=== PATIENT | female | born 1985 | race Caucasian/White ===

== ENCOUNTER 2016-11-26 17:05 | Outpatient (CLI) | payer OTHER ==
[~2016-11-26] VITALS: Ht 167.6 cm; Wt 108.0 kg
[2016-11-26 17:51] VITALS: Ht 167.6 cm; Wt 108.0 kg
== END 2016-11-26 21:37 | disposition home or self-care (01) ==
LOC: C.LD 17:05 → C.OPB 17:05
PROVIDERS: ATTEND Obstetrics & Gynecology
DX: O26.893 Other specified pregnancy related conditions, third trimester (principal); T14.90 Injury, unspecified; Z3A.36 36 weeks gestation of pregnancy; X58.XXXA Exposure to other specified factors, initial encounter

== ENCOUNTER → 2016-11-27 | Outpatient (CLI) | payer OTHER ==
[~2016-11-27] MED LIST: LANS15CA27 PO; MAGN400T6 PO; OXYC1TAB3 PO; PANT40TA PO; PREN1CAP3 PO; PRENTAB26 PO
== END | disposition home or self-care (01) ==
LOC: C.LABSPEC 13:55
PROVIDERS: ATTEND Obstetrics & Gynecology
DX: O09.10 Supervision of pregnancy with history of ectopic pregnancy, unspecified trimester (principal)

== ENCOUNTER 2016-12-06 13:36 | Outpatient (CLI) | payer OTHER ==
[~2016-12-06] VITALS: Ht 167.6 cm; Wt 108.5 kg
[2016-12-06] MEDS ORDERED: PANT40TA PO (14:08)
[2016-12-06] MEDS ORDERED: MAGN400T6 PO (14:08)
[2016-12-06] MEDS ORDERED: PRENTAB26 PO (14:08)
[2016-12-06 14:09] VITALS: Ht 167.6 cm; Wt 108.5 kg
[2016-12-06] MEDS ORDERED: NURSING VERBAL MED ORDER ONE (14:45)
[2016-12-06] MEDS ORDERED: ACETAMINOPHEN 325 MG TAB ONE (14:50)
[2016-12-06 15:06] LABS: MEAN CELL VOLUME 81.5 fL (80-100); MEAN CORPUSCULAR HEMOGLOBIN 27.3 pg (25-34); MEAN PLATELET VOLUME 11.8 fL (7.4-10.4); PLATELET COUNT 243 K/uL (130-400); RED BLOOD COUNT 4.17 M/uL (4.2-5.4); WHITE BLOOD COUNT 9.41 K/uL (4.8-10.8)
[2016-12-06 15:15] LABS: MEAN CORPUSCULAR HGB CONC 33.5 g/dl (32-36)
[2016-12-06 15:25] LABS: BUN/CREATININE RATIO 14.1 (10-20); CALCIUM 8.9 mg/dl (8.5-10.1); CREATININE 0.54 mg/dl (0.60-1.20); POTASSIUM 3.7 mmol/L (3.5-5.1)
[2016-12-06 15:29] LABS: ALB/GLOB RATIO 0.7 (0.9-2)
== END 2016-12-06 16:20 | disposition home or self-care (01) ==
LOC: C.OPB 13:36 → C.LD 13:37 → C.OPB 16:20
PROVIDERS: ATTEND Obstetrics & Gynecology
DX: O62.9 Abnormality of forces of labor, unspecified (principal); Z3A.37 37 weeks gestation of pregnancy

== ENCOUNTER 2016-12-16 10:37 | Inpatient (IN) | payer OTHER ==
[~2016-12-16] VITALS: Ht 167.6 cm; Wt 113.6 kg
[~2016-12-16 10:37] MED LIST changes: -LANS15CA27 PO; -OXYC1TAB3 PO; -PREN1CAP3 PO
[2016-12-16 12:18] VITALS: BMI 40.4
[2016-12-16] MEDS ORDERED: LACTATED RINGER'S 1000ML 1,000 ML IV SCH (12:43)
[2016-12-16] MEDS ORDERED: LACTATED RINGER'S 1000ML 1,000 ML IV PRN (12:43)
[2016-12-16 13:11] LABS: HEMATOCRIT 34.1 % (37-47); MEAN CELL VOLUME 81.6 fL (80-100); MEAN CORPUSCULAR HEMOGLOBIN 27.8 pg (25-34); MEAN PLATELET VOLUME 11.6 fL (7.4-10.4); PLATELET COUNT 252 K/uL (130-400); RED BLOOD COUNT 4.18 M/uL (4.2-5.4); WHITE BLOOD COUNT 9.63 K/uL (4.8-10.8)
[2016-12-16 13:35] LABS: BUN/CREATININE RATIO 13.7 (10-20); CALCIUM 8.9 mg/dl (8.5-10.1); CREATININE 0.52 mg/dl (0.60-1.20); POTASSIUM 3.9 mmol/L (3.5-5.1)
[2016-12-16 13:50] VITALS: Ht 167.6 cm; Wt 113.6 kg
[2016-12-16] MEDS ORDERED: LACTATED RINGER'S 1000ML 500 ML IV PRN ×2 (14:02→16:46)
[2016-12-16] MEDS ORDERED: OXYTOCIN 30 UNITS/500ML NSS IV PRN ×2 (14:15→19:00)
--- NOTE | 2016-12-16 14:56 | Medical Student: [facility] ---
Med Student History & Physical Date of Service Dec 16, 2016. Chief Complaint R/O Rupture Of Membranes History of Present Illness Source: patient, family pt is a 31 yo F with , ORTIZ of 01/03/2017 by first trimester US, 38 and 6/ 7 weeks who presents to r/o ROM. has been followed by Sofia Kraft after transferring from [place] on 11/20/2016. course has been complicated by elevated BP, IOL was planned at 39 weeks GA. She also reports intermittent headaches and vision changes (floaters and tunnel vision). This morning after showering she noticed some warm clear fluid running down her legs. She denies any bleeding. Reports good movements. Pt plans on using epidural for pain control. Blood type is A negative, rubella immune, GBS negative, HBV negative, VDRL/RPR negative, C/G negative, 1 hr glucose 96. 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 Menarche at age 15, LMP: 02/28/2016 , no hx of abnormal pap smears Past Medical History hx of varicella Past Surgical History right shoulder surgery, wisdom teeth Family History Coarctation of the aorta (son) Colon cancer (paternal grandfather) Malignant neoplasm of breast (maternal grandmother) Social History Smoking Status: Never Smoker Alcohol Use: none Drug Use: none Marital Status: Occupational Status: employed Allergies Coded Allergies: No Known Allergies (Verified , 12/06/16) Home Medications Magnesium Oxide (Mag-Ox), 400 MG PO Multivit/Min/Iron/Fol Ac/Pren ( Vitamin), 1 TAB PO DAILY Pantoprazole (Protonix), 40 MG PO DAILY Review of Systems Constitutional: No fever Respiratory: No cough, No shortness of breath Cardiovascular: No chest pain Abdomen: No pain, No nausea, No vomiting Genitourinary - Female: No dysuria Physical Exam General Appearance: WD/WN, no apparent distress Respiratory/Chest: lungs clear, normal breath sounds, no respiratory distress Cardiovascular: regular rate, rhythm Abdomen / GI: non tender, soft Extremities: + pedal edema (some pedal edema (usually much worse in the evening )) Monitoring External Monitor: baseline HR 125, moderate variability, category 1 tracing. Laboratory Results 7/26/17 12:55 12/16/16 12:55 Test 12/16/16 12:55 Red Blood Count 4.18 M/uL (4.2-5.4) Mean Corpuscular Volume 81.6 fL (80-100) Mean Corpuscular Hemoglobin 27.8 pg (25-34) Mean Corpuscular Hemoglobin Concent 34.0 g/dl (32-36) RDW Standard Deviation 42.4 fL (36.4-46.3) RDW Coefficient of Variation 14.3 % (11.5-14.5) Mean Platelet Volume 11.6 fL (7.4-10.4) Anion Gap 8.0 mmol/L (3-11) Est Creatinine Clear Calc Drug Dose 202.3 ml/min Estimated GFR () 148.6 Estimated GFR (Non- 128.2 BUN/Creatinine Ratio 13.7 (10-20) Calcium Level 8.9 mg/dl (8.5-10.1) Aspartate Amino Transf (AST/SGOT) 13 U/L (15-37) Assessment and Plan pt is a 31 yo F at 38 and 6/7 weeks GA who presents with possible ROM. Blood type A+, GBS negative, rubella immune. tracing category 1. - Admit to L&D and monitor mother. - Monitor fetus with EFM and contractions with tocodynamometer - NPO except clear liquid and ice chips - Perform AROM to induce/accelerate labor - Consider pitocin if needed - Anticipate
[2016-12-16] MEDS ORDERED: EpHEDrine SULFATE INJ 50 MG/ML AMP ONE (15:44)
[2016-12-16] MEDS ORDERED: BUPIVACAINE 0.25% 30 ML VIAL ONE (15:44)
[2016-12-16] MEDS ORDERED: FENTANYL CITRATE INJ 50 MCG/1 ML 2 ML VIAL ONE (15:45)
[2016-12-16] MEDS ORDERED: FENTANYL 2MCG/ML ROPIV 1.25MG/ML 100ML BAG EPI ONE (15:45)
[2016-12-16] MEDS ORDERED: NALOXONE HCL INJ 1 MG in SODIUM CHLORIDE 0.9% 1000ML 1,000 ML IV PRN (16:46)
[2016-12-16] MEDS ORDERED: FENTANYL 2MCG/ML ROPIV 1.25MG/ML 100ML BAG EPI PRN (17:00)
[2016-12-16] MEDS ORDERED: DiphenhydrAMINE HCL 50 MG/ML VIAL IV PRN (17:00)
[2016-12-16] MEDS ORDERED: EpHEDrine SULFATE INJ 50 MG/ML AMP IV PRN (17:00)
[2016-12-16] MEDS ORDERED: NALOXONE HCL INJ 0.4 MG/1 ML VIAL/CARP IV PRN (17:00)
[2016-12-16] MEDS ORDERED: ONDANSETRON INJ 2 MG/ML 2 ML VIAL IV PRN (17:00)
[2016-12-16] MEDS ORDERED: NALBUPHINE HCL INJ 10 MG/ML AMP IV PRN (17:00)
[2016-12-16] MEDS ORDERED: ACETAMINOPHEN/CODEINE 300/30MG TAB PO PRN ×2 (19:00)
[2016-12-16] MEDS ORDERED: LANOLIN OINT EXT PRN ×2 (19:00)
[2016-12-16] MEDS ORDERED: ACETAMINOPHEN 325 MG TAB PO PRN (19:00)
[2016-12-16] MEDS ORDERED: SUPERCREAM 0.870 % 15GM JAR EXT PRN (19:00)
[2016-12-16] MEDS ORDERED: BENZOCAINE 20% AER SPR 82.5 GM CAN EXT PRN (19:00)
--- NOTE | 2016-12-16 19:39 | Anesthesia Procedure Note ---
Anesthesia Epidural Removal Nt Date & Time Dec 16, 2016 at 19:39 Vital Signs Pain Intensity: 0.0 Notes Mental Status: alert / awake / arousable, participated in evaluation Nausea / Vomiting: adequately controlled Pain: adequately controlled Airway Patency, RR, SpO2: stable & adequate BP & HR: stable & adequate Hydration State: stable & adequate Neuraxial Anesthesia: was administered Anesthetic Complications: no major complications apparent, pt satisfied with anesthetic care Epidural: removed without complications, with tip intact
--- NOTE | 2016-12-16 22:22 | DELIVERY SUMMARY ---
DATE OF OPERATION: 12/16/2016 The patient is a 4, para 1-0-1-1, white female, EDC of 12/24/2016, who was a late [id number] to us at 36 weeks. She presented with leaking amniotic fluid at approximately 0730 hours today. This was confirmed with Nitrazine, ferning and AmniSure. There was a forewater present upon examination. This was ruptured for a more clear fluid. She then progressed into active labor. She received effective epidural analgesia. She proceeded to complete dilation and pushed effectively over two contractions for delivery of a viable male infant. Mouth and nasopharynx were suctioned on the perineum. The rest of the was delivered easily and placed on the mother's abdomen for further attention and drying. There was vigorous crying and movement of all four limbs after delivery. The cord was clamped and cut. The placenta was expressed intact with a 3-vessel cord. bleeding was controlled with dilute Pitocin, first at 333 mL per hour, which was then increased to 999 mL per hour. At this point, bleeding was small. A first-degree perineal laceration and a first-degree right labial laceration were repaired with 3-0 chromic in the usual fashion. Estimated blood loss was 500 mL. Mother and infant were doing well after delivery. I attest to the content of the Intraoperative Record and any orders documented therein. Any exception s are noted below.
[2016-12-16 22:43] VITALS: BP 132/82; PULSE 88; TEMP 37
[2016-12-17 00:15] VITALS: BP 109/72; PULSE 91; TEMP 37.2
[2016-12-17] MEDS: IBUPROFEN 600 MG TAB PO PRN ×4 (02:57→21:15)
[2016-12-17 03:18] VITALS: BP 125/83; PULSE 86; TEMP 36.5
--- NOTE | 2016-12-17 06:43 | OB/GYN Progress Note ---
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 Subjective conversation w/ patient, physical exam, chart review, lab review Ambulation: limited ambulation (up to bathroom) Voiding: no voiding problems Passing Gas: Yes Diet Tolerance: Regular Diet Lochia: Small Feeding Type: Breast Feeding Pain: Says suture sites are very sore Review of Systems Constitutional: No fever, No chills Respiratory: No cough, No shortness of breath Cardiac: No chest pain Abdomen: No nausea, No vomiting, No diarrhea Female : No dysuria Objective Vital Signs Date Time Temp Pulse Resp B/P (MAP) Pulse Ox O2 Delivery O2 Flow Rate FiO2 12/17/16 03:18 36.5 86 20 125/83 (97) Room Air 12/17/16 00:15 37.2 91 20 109/72 (84) Room Air 12/17/16 00:15 Room Air 12/16/16 22:43 Room Air 12/16/16 22:43 37.0 88 20 132/82 (99) Room Air Physical Exam General Appearance: WELL-APPEARING, WD/WN, NO APPARENT DISTRESS Respiratory/Chest: lungs clear, normal breath sounds Cardiovascular: regular rate, rhythm Abdomen: normal bowel sounds, non tender, soft Fundus: Firm, Non-Tender, Relation to Umbilicus (at umbilicus) Extremities: normal range of motion, non-tender, no calf tenderness, + pedal edema, + swelling (approx 1-2+ edema (B)) Laboratory Results Last 24 Hours Test 12/16/16 12:55 12/16/16 15:11 12/17/16 06:32 White Blood Count 9.63 K/uL Red Blood Count 4.18 M/uL Hemoglobin 11.6 g/dL Hematocrit 34.1 % Mean Corpuscular Volume 81.6 fL Mean Corpuscular Hemoglobin 27.8 pg Mean Corpuscular Hemoglobin Concent 34.0 g/dl RDW Standard Deviation 42.4 fL RDW Coefficient of Variation 14.3 % Platelet Count 252 K/uL Mean Platelet Volume 11.6 fL Sodium Level 139 mmol/L Potassium Level 3.9 mmol/L Chloride Level 109 mmol/L Carbon Dioxide Level 22 mmol/L Anion Gap 8.0 mmol/L Blood Urea Nitrogen 7 mg/dl Creatinine 0.52 mg/dl Est Creatinine Clear Calc Drug Dose 202.3 ml/min Estimated GFR () 148.6 Estimated GFR (Non- 128.2 BUN/Creatinine Ratio 13.7 Random Glucose 66 mg/dl Calcium Level 8.9 mg/dl Aspartate Amino Transf (AST/SGOT) 13 U/L Amniotic Fluid Protein POS Assessment and Plan Post- Day Number: 1 Continue Routine Care: Resident Physician Supervision Note: I was present with Dr. Vasquez during the history and exam. I discussed the case with the resident and agree with the findings and plan as documented in the note. Any exceptions or clarifications are listed here: [None] Documented By: Alessia Farmer In my clinical judgment this beneficiary meets acute admission criteria, established by [facility], that includes being hospitalized through two midnights.31yo s/p , now PPD #1. - Pts blood type A negative. Babys blood type A positive. GBS negative. Rubella immune. - Vital signs reviewed and stable. - Pain controlled with motrin. - No leg swelling or tenderness on calf palpation. Encourage ambulation. - Encourage breast feeding. - Hemoglobin pre-delivery 11.6, post-delivery pending this am. Bleeding has improved. Continue to monitor clinically. - Continue routine post-vaginal delivery care. - Pt agreed with above plan, all current questions answered. Jacob Vasquez MD, PGY1 Outside Cutter Tracking Resident Involvement: Resident Care Provided Care Provided: OB Delivery (morning rounds)
--- NOTE | 2016-12-17 06:54 | Medical Student: [facility] ---
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 Subjective conversation w/ patient Ambulation: limited ambulation (bathroom) Voiding: no voiding problems Passing Gas: Yes Diet Tolerance: Regular Diet Lochia: Small Feeding Type: Breast Feeding Pain: minor soreness at site of laceration and repair, some gassy cramps Review of Systems Constitutional: No fever Respiratory: No cough, No shortness of breath Cardiac: No chest pain Female : No dysuria Objective Vital Signs Date Time Temp Pulse Resp B/P (MAP) Pulse Ox O2 Delivery O2 Flow Rate FiO2 12/17/16 03:18 36.5 86 20 125/83 (97) Room Air 12/17/16 00:15 37.2 91 20 109/72 (84) Room Air 12/17/16 00:15 Room Air 12/16/16 22:43 Room Air 12/16/16 22:43 37.0 88 20 132/82 (99) Room Air Physical Exam General Appearance: WELL-APPEARING, WD/WN, NO APPARENT DISTRESS Respiratory/Chest: lungs clear, normal breath sounds, no respiratory distress Cardiovascular: regular rate, rhythm Fundus: Firm, Non-Tender, Relation to Umbilicus (at umbilicus) Extremities: no calf tenderness, + pedal edema (swelling stilll present but has been going down) Laboratory Results Last 24 Hours Test 12/16/16 12:55 12/16/16 15:11 12/17/16 06:32 White Blood Count 9.63 K/uL Red Blood Count 4.18 M/uL Hemoglobin 11.6 g/dL Hematocrit 34.1 % Mean Corpuscular Volume 81.6 fL Mean Corpuscular Hemoglobin 27.8 pg Mean Corpuscular Hemoglobin Concent 34.0 g/dl RDW Standard Deviation 42.4 fL RDW Coefficient of Variation 14.3 % Platelet Count 252 K/uL Mean Platelet Volume 11.6 fL Sodium Level 139 mmol/L Potassium Level 3.9 mmol/L Chloride Level 109 mmol/L Carbon Dioxide Level 22 mmol/L Anion Gap 8.0 mmol/L Blood Urea Nitrogen 7 mg/dl Creatinine 0.52 mg/dl Est Creatinine Clear Calc Drug Dose 202.3 ml/min Estimated GFR () 148.6 Estimated GFR (Non- 128.2 BUN/Creatinine Ratio 13.7 Random Glucose 66 mg/dl Calcium Level 8.9 mg/dl Aspartate Amino Transf (AST/SGOT) 13 U/L Amniotic Fluid Protein POS Assessment and Plan Post- Day Number: 1 Continue Routine Care: Pt is a 31 yo F PPD#1 s/p . Pt is A- and baby is A+. GBS negative, rubella immune. - vitals stable - pain controlled with motrin - Pre-delivery Hgb 11.6, post-delivery Hgb pending. Will continue to monitor. - Encourage ambulation and - continue to provide routine post-vaginal delivery care
[2016-12-17 07:02] LABS: HEMATOCRIT 27.8 % (37-47)
[2016-12-17 07:12] VITALS: BP 117/74; PULSE 80; TEMP 36.5; O2SAT 97
[2016-12-17] MEDS: DOCUSATE SODIUM 100 MG CAP PO SCH ×2 (07:41→20:09)
[2016-12-17] MEDS: PRENATAL VITAMIN TAB PO SCH (07:41)
[2016-12-17 11:20] VITALS: BP 159/113; PULSE 84; TEMP 36.4; O2SAT 98
[2016-12-17 16:11] VITALS: BP 133/86; PULSE 84; TEMP 37.1; O2SAT 95
[2016-12-17] MEDS ORDERED: BISACODYL 5 MG TABEC PO SCH (20:00)
[2016-12-17 23:18] VITALS: BP 144/87; PULSE 86; TEMP 37; O2SAT 98
--- NOTE | 2016-12-18 06:51 | OB/GYN Progress Note ---
PROCESS SPECIALIST Progress Note Date of Service Dec 18, 2016. Subjective conversation w/ patient, physical exam, chart review, lab review Ambulation: ambulating normally Voiding: no voiding problems Passing Gas: Yes Diet Tolerance: Regular Diet Lochia: Small Feeding Type: Breast Feeding Pain: Denies any pain Review of Systems Constitutional: No fever, No chills Respiratory: No cough, No shortness of breath Cardiac: No chest pain Abdomen: No nausea, No vomiting, No diarrhea Female : No dysuria Objective Vital Signs Date Time Temp Pulse Resp B/P (MAP) Pulse Ox O2 Delivery O2 Flow Rate FiO2 12/17/16 23:18 37.0 86 20 144/87 (106) 98 Room Air 12/17/16 23:18 98 Room Air 12/17/16 16:11 37.1 84 20 133/86 (102) 95 Room Air 12/17/16 16:00 Room Air 12/17/16 11:20 36.4 84 20 159/113 (128) 98 Room Air 12/17/16 07:40 Room Air 12/17/16 07:12 36.5 80 20 117/74 (88) 97 Room Air Physical Exam General Appearance: WELL-APPEARING, WD/WN, NO APPARENT DISTRESS Respiratory/Chest: lungs clear, normal breath sounds Cardiovascular: regular rate, rhythm Abdomen: normal bowel sounds, non tender, soft Fundus: Firm, Non-Tender, Relation to Umbilicus (approx one down) Extremities: normal range of motion, non-tender, no calf tenderness, + pedal edema, + swelling (approx 1+ edema, perhaps some improvement from yesterday) Assessment and Plan Post- Day Number: 2 Continue Routine Care: 31yo s/p , now PPD #2. - Pts blood type A negative. Babys blood type A positive. RhoGAM given 27Jul. GBS negative. Rubella immune. - Vital signs reviewed and stable. Some elevated BP in past 24 hours. Hx borderline HTN. Should f/u with PCM. - Pain controlled with motrin. - Bilateral LE edema but no tenderness on calf palpation or difficulty with ankle ROM. Encourage ambulation. - Encourage breast feeding. - Hemoglobin pre-delivery 11.6, post-delivery 9.4. Continue to monitor clinically. - Continue routine post-vaginal delivery care. - Pt agreed with above plan, all current questions answered. Jacob Vasquez MD, PGY1 [employer] Symbol Stamper Physician Supervision Note: I interviewed and examined the patient. Discussed with Dr. Vasquez and agree with findings and plan as documented in the note. Any exceptions or clarifications are listed here: BP stable, OK for d/c, instructions given, f/u in 6 weeks Documented By: Dilshad Zamorano Resident Tracking Resident Involvement: Resident Care Provided Care Provided: OB Delivery (morning rounds)
--- NOTE | 2016-12-18 07:05 | Discharge Instructions ---
Discharge Instructions Date of Service Dec 18, 2016. Admission Reason for Admission: R/O Rupture Of Membranes Discharge Discharge Diagnosis / Problem: Recovery from vaginal delivery Discharge Goals Goal(s): Routine recovery after delivery Medications Continue Dispensed Medications: supercream, dermaplast, tucks, lansinoh Activity Recommendations Activity Limitations: per Instructions/Follow-up section . Instructions / Follow-Up Instructions / Follow-Up ACTIVITY RECOMMENDATIONS: * Gradual return to full activity over the next 2-3 weeks. * No lifting - nothing heavier than baby over the next 2-3 weeks. * Do not engage in vigorous exercise, sexual activity or sports until cleared by your physician. * Do not drive or operate any motorized equipment until cleared by your physician. * You may shower/bathe daily. MEDICATIONS: For discomfort or pain, you may use Acetaminophen (Tylenol), Ibuprofen (Advil), or Naproxen (Aleve) following the package directions. For constipation you may use Colace following the package directions. BREAST CARE: If you are not breast feeding: * Wear a supportive bra 24 hours a day for one to two weeks. * Avoid stimulating your breasts and nipples as much as possible during the first few weeks after delivery. * When taking a shower, have the warm water hit your back, not breasts. * When your breasts feel full, apply ice packs. Usually three to four times a day helps ease the discomfort. * Take a mild pain medication (Tylenol / Motrin) when you are uncomfortable. If breast feeding: * Use breast milk to lubricate nipples. Lansinoh cream may be used for sore nipples. You do not need to remove cream prior to breast feeding. If using a different brand of cream, check the label for directions regarding removal of cream prior to nursing. * Wear a supportive bra. * If having problems with breasts or breast feeding, call a peoplesoft consultant or your health care provider. EPISIOTOMY CARE: After delivery, if you have an episiotomy (stitches), the following steps will ease discomfort and aid healing. * For the first 24 hours after delivery, place ice packs next to your episiotomy to help reduce swelling. * After the first 24 hour-period, sitz baths, either portable or in the tub, are suggested. A shower with a shower arm sprayed over the episiotomy may be comforting. * Ayah care should be done after each voiding and bowel movement. Squirt warm water from a plastic bottle over the perineum (region of the body between the anus and urinary opening) and pat dry. * Use Dermoplast to ease discomfort. Shake container. Metaline directly over the episiotomy. Place a Tucks on a clean sanitary pad next to your episiotomy. SPECIAL CARE INSTRUCTIONS: When you are discharged from the hospital, it is important for you to follow the instructions listed below: * During the first week at home, you should be able to care for yourself and your baby. In addition, the usual light household activities are encouraged. * Limit your activities to the way you feel. Do not try to clean the house or move furniture. Be sensible. * If you actively engage in sports and have done so up until the time of your delivery, you may resume these activities as soon as you feel able. This may take up to one month or even longer. Use good judgment. * Continue to take your vitamins for at least six weeks after the of your baby. * Your diet need not be limited unless you were on a special diet before your delivery. Breast-feeding mothers need around 2500 calories per day and at least 64-80 ounces of fluid per day (8 to 10 glasses). * You should eat foods from the four major food groups. Crash diets or fad diets are to be avoided. Eating lean meats, fresh fruits and vegetables, low-fat dairy products, high fiber foods and a regular exercise program, will help you get back to your pre- weight without putting your health at risk. * Constipation is sometimes a problem after delivery. Take a mild laxative as needed. If breast feeding, Milk of Magnesia is acceptable to use. You may use a suppository or Fleets enema if no episiotomy. * A daily shower or tub bath is suggested. Be sure to thoroughly and gently dry the perineum. * A bloody vaginal discharge will usually continue until around four weeks post . A small amount of bleeding may continue for as long as six weeks. Vaginal discharge changes from the bright red bleeding after delivery to pink then brownish and finally yellowish-pink before becoming white and disappearing. * Bleeding may increase with activity. Your first period may come in 4-8 weeks. If you are breast feeding, your period may be delayed even longer. * [place] (sex) can begin whenever both you and your partner feel comfortable and do not have any form of genital infection. It is recommended that you wait at least six weeks for internal and external healing to occur. If you have questions, please talk to your health care practitioner. A condom should be used to prevent infection and . * Foreplay, gentle intercourse and lubrication is very important the first several times to prevent pain. A water-based lubricant such as K-Y jelly or Astroglide may be used. * If you have RH negative blood and your baby is RH positive, you will receive RHOGAM by injection prior to discharge. The nurse will give you a card to keep with you that has the date and place that you received RHOGAM after delivery. * During your care, you had a Rubella screen done to check for the presence of rubella antibodies in your blood. If your test was negative, you will receive a Rubella vaccine prior to discharge. This vaccine may cause a fever, soreness at the injection site and flu-like symptoms. If these symptoms persist, notify your health care practitioner. is not advised for one month after a Rubella vaccine. * Verbalizes understanding of car seat law as reviewed with patient nursing. * Car Seat hand-out given and reviewed with patient by nursing. * Shaken baby information reviewed with patient by nursing. Call you doctor if: * Heavy bleeding (saturating several pads an hour) or passing clots the size of your fist. * A fever >101 degrees F (38.3 degrees C) on two occasions four hours apart and /or chills. * Unusual pain in the pelvic or vaginal areas. * "Baby Blues" lasting longer than two weeks. If you have any questions or concerns, call your health care practitioner at . FOLLOW UP VISIT: * Please call the office at to schedule a 6 week examination. It is important you keep this appointment. It is important for you to make arrangements for either yearly or twice yearly check-ups thereafter. Current Hospital Diet Patient's current hospital diet: Regular OB Diet Discharge Diet Recommended Diet: Regular OB Diet Pending Studies Studies pending at discharge: no Medical Emergencies . Who to Call and When: Medical Emergencies: If at any time you feel your situation is an emergency, please call 911 immediately. . Non-Emergent Contact Non-Emergency issues call your: Microbiology Technologist . . "Provider Documentation" section prepared by Jacob Vasquez. . VTE Core Measure Inpt VTE Proph given/why not?: Treatment not indicated
[2016-12-18] MEDS: PRENATAL VITAMIN TAB PO SCH (08:05)
[2016-12-18] MEDS: DOCUSATE SODIUM 100 MG CAP PO SCH (08:05)
[2016-12-18] MEDS: IBUPROFEN 600 MG TAB PO PRN ×2 (08:06→14:32)
[2016-12-18 08:10] VITALS: BP 129/87; PULSE 86; TEMP 36.9
[2016-12-18 13:00] VITALS: BP_DIAS 87; PULSE 86; TEMP 36.9
[2016-12-18 15:23] VITALS: BP 121/68; PULSE 90; TEMP 36.6
[2016-12-19] MEDS ORDERED: PREN1CAP3 PO (20:19)
[2016-12-19] MEDS ORDERED: LANS15CA27 PO (20:19)
[2016-12-19] MEDS ORDERED: MAGN400T6 PO (20:19)
[2016-12-19] MEDS ORDERED: OXYC1TAB3 PO (21:03)
--- NOTE | 2016-12-20 13:35 | EDITING REQUIRED CODING QUERY ---
CODING QUERY To promote full compliance with coding requirements relating to patient care, provider participation is requested in all cases of medical biller coder uncertainty. Please assist us with the question(s) below: Coding Question(s): Dr. Giraldo, Please clarify the following diagnosis: In the OB progress notes, the following is documented: She presented with leaking amniotic fluid at approximately 0730 hours today. This was confirmed with Nitrazine, ferning and AmniSure. There was a forewater present upon examination. This was ruptured for a more clear fluid. She then progressed into active labor. Please clarify if this was: ( ) premature rupture of membranes ( x ) spontaneous rupture of membranes ( ) other, please explain Also, elevated blood pressure was noted. Please clarify if the patient had: ( ) gestational hypertension ( ) pre-existing hypertension ( x ) elevated blood pressure without diagnosis of hypertension ( ) other, please explain Physician's Response(s): Thank you for your time, VIVIANE Lucas, BOX TOE STITCHER
== END 2016-12-18 15:20 | disposition home or self-care (01) | DRG 774 ==
LOC: C.LD 10:37 → C.OPB 10:37 → C.LD 12:45 → C.OBG 22:38 → EDSTATUS 12-24 10:46
PROVIDERS: ADMIT Obstetrics & Gynecology; ATTEND Obstetrics & Gynecology
PROC: 0UQMXZZ Repair Vulva, External Approach (ICD-10-PCS; principal; 2016-12-16)
PROC: 10E0XZZ Delivery of Products of Conception, External Approach (ICD-10-PCS; principal; 2016-12-16)
PROC: 0HQ9XZZ Repair Perineum Skin, External Approach (ICD-10-PCS; principal; 2016-12-16)
DX: O99.42 Diseases of the circulatory system complicating childbirth (principal); R03.0 Elevated blood-pressure reading, without diagnosis of hypertension; O70.0 First degree perineal laceration during delivery; Z3A.38 38 weeks gestation of pregnancy; Z37.0 Single live birth

== ENCOUNTER 2016-12-19 19:55 | Emergency (ER) | payer OTHER ==
[~2016-12-19 19:55] MED LIST changes: -MAGN400T6 PO
[2016-12-19 19:58] VITALS: TEMP 36.8; Ht 167.6 cm
[2016-12-19] MEDS ORDERED: ACETAMINOPHEN 500 MG TAB PO STA (20:08)
[2016-12-19] MEDS ORDERED: IBUPROFEN 600 MG TAB PO STA (20:08)
--- NOTE | 2016-12-19 20:11 | EMERGENCY ROOM VISIT NOTE ---
History Report prepared by Raymundo: Prem Pacheco Under the Supervision of: Dr. Kirill Barajas M.D. First contact with patient: 20:02 Chief Complaint: ANKLE PAIN Stated Complaint: LEFT ANKLE PAIN History of Present Illness The patient is a 31 year old female who presents to the Emergency Room with complaints of a sudden left ankle injury from a fall that occurred around 2 hours ago. She says that she was walking on a slight hill that was wet, and slipped and fell. The patient states that she heard her left ankle snap on the fall, and it currently hurts too much to put any weight on it. She denies any other injuries, and she denies hitting her head or neck. The patient specifically denies any back pain or left toe pain. She says that she has not taken any medications for the pain. She is not on any blood thinners. The patient is 2 days post-. Source of History: patient Onset: 2 hours ago Position: ankle (left), other Quality: other (heard a snap on fall) Timing: other (sudden) Associated Symptoms: No back pain Note: Associated symptoms: Left ankle pain. Denies left toe pain. Review of Systems See HPI for pertinent positives & negatives. A total of 6 systems reviewed and were otherwise negative. Past Medical & Surgical Medical Problems: (1) 36 weeks gestation of (2) 39 weeks gestation of (3) Amniotic fluid leaking (4) Traumatic injury during in third trimester Family History No pertinent family history Social History Smoking Status: Never Smoker Drug Use: none Marital Status: Housing Status: lives with family Occupation Status: employed Current/Historical Medications Scheduled Lansoprazole (Prevacid), 1 CAP PO DAILY Magnesium Oxide (Mag-Ox), 400 MG PO DAILY Mv & Min W/Fe Polysac (Vitafol-One), 1 CAP PO DAILY Scheduled PRN Oxycodone Immediate Rel Tab (Roxicodone Ir), 1 TAB PO Q6H PRN for Severe Pain Allergies Coded Allergies: No Known Allergies (Verified , 12/06/16) Physical Exam Vital Signs Date Time Temp Pulse Resp B/P (MAP) Pulse Ox O2 Delivery O2 Flow Rate FiO2 12/19/16 21:55 95 18 132/91 98 12/19/16 19:58 36.8 107 18 164/97 97 Room Air Physical Exam GENERAL: Patient is well appearing and in no acute distress. HEENT: No acute trauma, normocephalic atraumatic, mucous membranes moist, no nasal congestion, no scleral icterus. LUNGS: No dyspnea. Clear to auscultation and equal bilaterally. No wheeze, no rhonchi. HEART: Regular rate and rhythm. No murmurs, rubs, gallops appreciated. BACK: No midline tenderness, no CVA tenderness EXTREMITIES: Swelling and tenderness to palpation of left lateral malleolus of ankle. Pain with range of motion in ankle. Mild tenderness of mid left fibula, distal n/v intact. NEUROLOGIC: Alert and oriented, no acute motor or sensory deficits, no focal weakness, cranial nerves grossly intact. SKIN: No rash, no jaundice, no diaphoresis. Medical Decision & Procedures ER Provider Diagnostic Interpretation: X ray results are stated below per my interpretation and the radiologist's interpretation. LEFT TIBIA/FIBULA 2 VIEWS ROUTINE CLINICAL HISTORY: Left ankle injury, mid fib pain COMPARISON: None FINDINGS: There is an acute oblique mildly displaced distal left fibular fracture. No proximal left fibular fracture is identified. There is no left tibial fracture. No ankle mortise widening is identified. IMPRESSION: 1. Acute oblique mildly displaced distal left fibular fracture. 2. No proximal left fibular fracture. 3. No acute left tibial fracture. Electronically signed by: Cachorro Lieberman M.D. 12/19/2016 8:37 PM Dictated Date/Time: 12/19/2016 8:37 PM LEFT ANKLE MIN 3 VIEWS ROUTINE CLINICAL HISTORY: Left ankle injury, mid fib pain COMPARISON: None FINDINGS: There is an oblique acute mildly displaced fracture of the distal shaft of the left fibula that extends from the level of the tibiotalar joint 4 cm proximally. There is moderate lateral ankle soft tissue swelling. No acute fracture of the distal left tibia is identified. No definite ankle mortise widening is identified. IMPRESSION: Acute mildly displaced oblique distal left fibular fracture. Electronically signed by: Cachorro Lieberman M.D. 12/19/2016 8:36 PM Dictated Date/Time: 12/19/2016 8:34 PM Medications Administered Medications (Trade) Dose Ordered Sig/Rosemarie Route Start Time Stop Time Status Last Admin Dose Admin Ibuprofen (Motrin Tab) 600 mg NOW STAT PO 12/19/16 20:08 12/19/16 20:09 DC 12/19/16 20:12 600 MG Acetaminophen (Tylenol Tab) 1,000 mg NOW STAT PO 12/19/16 20:08 12/19/16 20:09 DC 12/19/16 20:12 1,000 MG Oxycodone HCl (Roxicodone Immediate Rel 5MG Home Pack) 1 homepack UD ONCE PO 12/19/16 20:45 12/19/16 20:46 DC 12/19/16 21:43 1 HOMEPACK ED Course 2001: The patient was evaluated in room B2. A complete history and physical exam was performed. 2007: Ordered Tylenol Tab 1000 mg PO, Motrin Tab 600 mg PO. 2044: Ordered Roxicodone Immediate Rel 5MG Home Pack 1 homepack PO. 2047: I reevaluated the patient and she is comfortable with the plan. She will follow up with orthopedics. The patient verbally expressed understanding and agreement of the treatment plan. The patient will be discharged. Medical Decision Differential diagnosis includes but is not limited to: fracture, dislocation, sprain. 31 yr old female with left distal radius fracture from misstep in flip flops on wet hill. With amount of swelling will hold off on boot just yet and stick to splint, crutches and ortho follow up. Low dose Oxy IR for pain as she is breast feeding. Head Trauma GCS Score: 15 Medication Reconcilliation Current Medication List: was personally reviewed by me Blood Pressure Screening Patient's blood pressure: Elevated blood pressure Blood pressure disposition: Elevated BP felt to be situational Impression Primary Impression: Fracture of distal end of left fibula Scribe Attestation The scribe's documentation has been prepared under my direction and personally reviewed by me in its entirety. I confirm that the note above accurately reflects all work, treatment, procedures, and medical decision making performed by me. Departure Information Dispostion Home / Self-Care Prescriptions Oxycodone Immediate Rel Tab (ROXICODONE IR) 5 Mg Tab 1 TAB PO Q6H Y for Severe Pain, #20 TAB Prov: Kirill Barajas M.D. 12/19/16 Referrals Tomy Swan M.D. (PCP) Humphrey Maynard D.O. Patient Instructions Ankle Fx, My [facility] Additional Instructions Your xrays show the end of your fibula is fractured. Please follow up with Orthopedics for further evaluation. You have received a narcotic pain medication prescription. These medications may cause drowsiness and should not be used with other sedative medications. Do not drive, drink alcohol, perform dangerous activities, nor make important decisions after taking these medications. termite treater use or inappropriate use may lead to addiction. Problem Qualifiers Primary Impression: Fracture of distal end of left fibula Encounter type: initial encounter Fracture type: closed Fracture morphology : unspecified fracture morphology Qualified Codes: S82.832A - Other fracture of upper and lower end of left fibula, initial encounter for closed fracture
[2016-12-19] MEDS ORDERED: LANS15CA27 PO (20:19)
[2016-12-19] MEDS ORDERED: MAGN400T6 PO (20:19)
[2016-12-19] MEDS ORDERED: PREN1CAP3 PO (20:19)
--- NOTE | 2016-12-19 20:37 | DIAGNOSTIC IMAGING REPORT ---
LEFT ANKLE MIN 3 VIEWS ROUTINE CLINICAL HISTORY: Left ankle injury, mid fib pain COMPARISON: None FINDINGS: There is an oblique acute mildly displaced fracture of the distal shaft of the left fibula that extends from the level of the tibiotalar joint 4 cm proximally. There is moderate lateral ankle soft tissue swelling. No acute fracture of the distal left tibia is identified. No definite ankle mortise widening is identified. IMPRESSION: Acute mildly displaced oblique distal left fibular fracture. Electronically signed by: Cachorro Lieberman M.D. 12/19/2016 8:36 PM Dictated Date/Time: 12/19/2016 8:34 PM
--- NOTE | 2016-12-19 20:39 | DIAGNOSTIC IMAGING REPORT ---
LEFT TIBIA/FIBULA 2 VIEWS ROUTINE CLINICAL HISTORY: Left ankle injury, mid fib pain COMPARISON: None FINDINGS: There is an acute oblique mildly displaced distal left fibular fracture. No proximal left fibular fracture is identified. There is no left tibial fracture. No ankle mortise widening is identified. IMPRESSION: 1. Acute oblique mildly displaced distal left fibular fracture. 2. No proximal left fibular fracture. 3. No acute left tibial fracture. Electronically signed by: Cachorro Lieberman M.D. 12/19/2016 8:37 PM Dictated Date/Time: 12/19/2016 8:37 PM
[2016-12-19] MEDS ORDERED: OXYCODONE IR HOME PACK PO ONE (20:45)
[2016-12-19] MEDS ORDERED: OXYC1TAB3 PO (21:03)
[2016-12-19 21:55] VITALS: BP 132/91; PULSE 95; O2SAT 98
== END 2016-12-19 21:56 | disposition home or self-care (01) ==
LOC: C.EDB 19:57
DX: S82.832A Other fracture of upper and lower end of left fibula, initial encounter for closed fracture (principal); W01.0XXA Fall on same level from slipping, tripping and stumbling without subsequent striking against object, initial encounter; Z79.899 Other long term (current) drug therapy

== ENCOUNTER → 2017-02-11 | Outpatient (CLI) | payer OTHER ==
[~2017-02-11] MED LIST changes: +LANS15CA27 PO; +MAGN400T6 PO; +OXYC1TAB3 PO; -PANT40TA PO; +PREN1CAP3 PO; -PRENTAB26 PO
== END | disposition home or self-care (01) ==
LOC: C.LABSPEC 13:56
PROVIDERS: ATTEND Physician Assistant
DX: R21 Rash and other nonspecific skin eruption (principal)

== ENCOUNTER → 2017-03-18 | Outpatient (CLI) | payer OTHER ==
[2017-03-18 15:21] LABS: BASO % 0.3 %; BASO ABS # 0.02 K/uL (0-0.2); COMPLETE YES; EOS % 1.8 %; HEMATOCRIT 36.9 % (37-47); IG% 0.2 %; LYMPH % 27.1 %; MEAN CELL VOLUME 77.8 fL (80-100); MEAN CORPUSCULAR HEMOGLOBIN 25.5 pg (25-34); MEAN CORPUSCULAR HGB CONC 32.8 g/dl (32-36); NEUT % 62.6 %; PLATELET COUNT 295 K/uL (130-400); RED BLOOD COUNT 4.74 M/uL (4.2-5.4); WHITE BLOOD COUNT 6.27 K/uL (4.8-10.8)
== END | disposition home or self-care (01) ==
LOC: C.LAB1850 12:50
PROVIDERS: ATTEND Dermatology
DX: R21 Rash and other nonspecific skin eruption (principal)

== ENCOUNTER → 2017-06-21 | Outpatient (CLI) | payer OTHER | END | disposition home or self-care (01) | LOC: C.LABPBG 13:43 | PROVIDERS: ATTEND Physician Assistant | DX: R89.9 Unspecified abnormal finding in specimens from other organs, systems and tissues (principal) ==

== ENCOUNTER 2020-07-15 07:36 | Inpatient (IN) ==
[2020-07-15] MEDS ORDERED: OXYTOCIN 30 UNITS/500 ML BAG IV PRN ×3 (08:18→16:45)
--- NOTE | 2020-07-15 08:27 | History & Physical Report ---
Date of Service July 15, 2020 Assessment & Plan (1) Chronic hypertension affecting : (2) Need for rhogam due to Rh negative mother: (3) Club foot, , affecting care of mother, antepartum: admit, iv, labs. start pitocin, desires epidural ultimately for pain mgmt, plan arom. fhts categ 1. Bps normal, no sx. Admission and Anticipated Discharge Date Admission Date: July 15, 2020 History of Present Illness Chief Complaint: planned induction Primary Care Provider: Roxane Mariscal 35yo at 38 6/7 wks ega EDC 07/23/2020 for planned induction for history of chtn. Denies ctx, rom or vb. +FM. PNC c/b 1. bilateral club feet, saw mfm and c ortho 2. chtn--on asa, last growth us 3. normal echo 4. rh neg had rhogam, eval pp PNL rh neg, ri, gbs neg. covid + 07/04/20 All Active Problems Decreased movement Club foot, , affecting care of mother, antepartum Need for rhogam due to Rh negative mother Chronic hypertension affecting Supervision of normal intrauterine in multigravida Allergies Allergy/AdvReac Type Severity Reaction Status Date / Time No Known Allergies Allergy Verified 07/12/20 13:24 Home Medications Medication Instructions Recorded Confirmed Type vitamin with calcium 1 tab PO DAILY #30 tab 10/04/19 07/12/20 Rx no.72-iron 27 mg-folic acid 1 mg tablet magnesium oxide 200 mg PO BID #60 tab 12/19/19 07/12/20 Rx aspirin 81 mg chewable tablet 81 mg PO DAILY 03/28/20 07/12/20 History famotidine 40 mg tablet 40 mg PO DAILY #30 tab 04/04/20 07/12/20 Rx breast pump #1 ea 04/05/20 07/12/20 Rx cholecalciferol (vitamin D3) PO DAILY 05/15/20 07/12/20 History [id number] PO DAILY 05/15/20 07/12/20 History ondansetron HCl 4 mg tablet 4 mg PO Q8H PRN #30 tab 05/15/20 07/12/20 Rx nystatin 100,000 unit/gram topical 1 applic TOPICAL BID #30 g 05/29/20 07/12/20 Rx cream avfsoxofij-jnmktnczuezub-yyxcbcsm 1 cap PO Q6H PRN #7 cap 06/26/20 07/12/20 Rx 50 mg-300 mg-40 mg capsule Patient History Medical History (Updated 07/15/20 @ 08:35 by Lanny Alston MD, FACOG) Atypical nevi Encounter for anatomic survey Epidermal cyst Folliculitis Hx of ectopic Hx of varicella Milia Need for rhogam due to Rh negative mother No pertinent past medical history Positive test Surgical History H/O oral surgery H/O shoulder surgery Family History Son Coarctation of abdominal aorta Grandmother Breast cancer Other Colorectal cancer Social History Smoking Status: Former smoker Hx Alcohol Use: No Hx Substance Use: No Preferred Language: Andorran Beliefs That Will Affect Care: None marital status: marital status details: Kodi Desir (36) [phone] Current Living Situation: Spouse Current Living Situation Comment: lives with family, 1 dog current occupational status: unemployed Other Information That Helps Us Care for You: No Feels Safe at Home: Yes Safety Concerns: Feels Safe At This Time Assistive Devices: None Review of Systems denies ruffin, visual change. no ruq pain. no n/v. Physical Exam Constitutional: WD/WN, vitals as above Respiratory: normal respiratory effort, lungs clear to auscultation Cardiovascular: Rate/Rhythm: regular rate and regular rhythm Gastrointestinal (Abdomen): soft gravid nt Musculoskeletal: no edema nontender calves Neurologic: grossly normal Psychiatric: A+Ox3, euthymic affect Genitourinary: OB Exam Abdomen: + estimated weight (7.5#) Manual OB Exam: + cervical dilation 3 cm, + cervical effacement 50% and + station -2 OB Exam Monitor Tracing: + external FHT monitor used (135 mod variability ), + external uterine monitor used (irreg), + category I and + normal FHT variability Results & Data ([facility]) Vital Signs (Past 12 Hours) Vital Signs Temp Pulse Resp BP 07/15/20 07:46 97.7 F 20 07/15/20 07:45 97.7 F 85 20 125/86 Coding Level of Care Code None Diagnoses Chronic hypertension affecting O10.919 Need for rhogam due to Rh negative mother Z29.13 Club foot, , affecting care of mother, antepartum O35.8XX0
[2020-07-15] MEDS: LACTATED RINGER'S 1,000 ML IV PRN ×2 (08:48→13:35)
[2020-07-15 09:00] LABS: Hematocrit (blood only) 35.9 % (37-47); Hemoglobin 12.1 g/dL (12.0-16.0); Mean Corpuscular Hgb Conc 33.7 g/dL (32-36); Mean Corpuscular Volume 83.1 fL (80-100); Mean Platelet Volume 11.8 fL (7.4-10.4); Platelet Count 262 K/uL (130-400); RDW Coefficient of Variation 14.3 % (11.5-14.5); RDW Standard Deviation 43.5 fL (36.4-46.3); Red Blood Count 4.32 M/uL (4.2-5.4); White Blood Count 9.09 K/uL (4.8-10.8)
[2020-07-15] MEDS ORDERED: SODIUM CHLORIDE 0.9% INJ 10 ML VIAL ONE (13:23)
[2020-07-15] MEDS ORDERED: ePHEDrine sulfate 50 MG/ML AMP ONE (13:23)
[2020-07-15] MEDS ORDERED: BUPIVACAINE 0.25% 30 ML VIAL ONE (13:23)
[2020-07-15] MEDS ORDERED: fentaNYL 2MCG/ML ROPIVACAINE 1.25MG/ML 100 ML BAG EPI ONE (13:24)
[2020-07-15] MEDS ORDERED: fentaNYL citrate 100 MCG/2 ML VIAL ONE (13:24)
--- NOTE | 2020-07-15 13:35 | Medical Student H&P ---
Date of Service July 15, 2020 Assessment & Plan Admission and Anticipated Discharge Date Admission Date: July 15, 2020 35 year old here for pitocin induction and AROM as indicated. Prefers epidural as pain control. Fetus is category 1 per monitoring. BP normal with no symptoms of preeclampsia. Continue administering pitocin and monitor cervix. AROM and vaginal delivery planned. History of Present Illness Chief Complaint: induction of labor Primary Care Provider: Roxane Davey Lyn is a 35 year old at 38 weeks 6 days here for an induction and AROM due to chronic hypertension. Induction was originally planned for 07/12/20 but had to be pushed back due to asymptomatic COVID+ test on 07/04/20 with hx of COVID-19 exposure in April. She is off covid precautions as of 07/15/20, still asymptomatic. At anatomy scan, bilateral club feet were seen. Patient seen by MFM and [facility] o rtho at [place]. echo normal. Plans to establish care for baby at [facility] for club feet care. Rhogam given on 05/01/21. Blood type A-, rubella immune, syphilis and HIV -, hep B -, chlamydia and gonorrhea -. Normal 1 h GGT. Had flu shot in fall. Today, she denies headache, SOB, chest pain, calf pain, constipation, diarrhea, hematuria. Has had manjit shannon contractions 5-7 min apart for last 1-2 weeks. Losing mucus plus yesterday, greenish-clear mucus, no blood. No broken water. Can feel baby moving. Here today with and father of the child Bill. She prefers epidural for pain management. Allergies Allergy/AdvReac Type Severity Reaction Status Date / Time No Known Allergies Allergy Verified 07/15/20 09:39 Home Medications Medication Instructions Recorded Confirmed Type breast pump #1 ea 04/05/20 07/12/20 Rx famotidine [Pepcid] 40 mg PO DAILY 07/15/20 07/15/20 History ondansetron HCl [Zofran] 4 mg PO Q8H 07/15/20 07/15/20 History prenat.vits,nigel,thc-bcsz-wkmmh 1 tab PO DAILY 07/15/20 07/15/20 History [ Vitamin] Patient History Medical History Atypical nevi Encounter for anatomic survey Epidermal cyst Folliculitis Hx of ectopic Hx of varicella Milia Need for rhogam due to Rh negative mother No pertinent past medical history Positive test Surgical History H/O oral surgery H/O shoulder surgery Family History Son Coarctation of abdominal aorta Grandmother Breast cancer Other Colorectal cancer Social History Smoking Status: Former smoker Hx Alcohol Use: No Hx Substance Use: No Preferred Language: Turkish Beliefs That Will Affect Care: None marital status: marital status details: Kodi Desir (36) [phone] Current Living Situation: Spouse Current Living Situation Comment: lives with family, 1 dog current occupational status: unemployed Other Information That Helps Us Care for You: No Feels Safe at Home: Yes Safety Concerns: Feels Safe At This Time Assistive Devices: None OB History 2005: born vaginally at 40 wks with epidural, no complications during preg gabino or delivery. Dx with coarctation of aorta. 2015: twins, ectopic, lost at 16 and 17wks 2016: born vaginally at 38 wks with epidural, no complications during or delivery. Has developmental delays. Had proteinuria but no dx of preeclampsia or elevated BP. ELIGIBILITY MANAGER History Menarche at 15 y/o Periods lasting 3-5, light-medium flow, bad cramping with menses. 26-28 days between cycles, regular. No control No history of STIs No history of abnormal paps, last pap October 2019. Review of Systems no cough and no dyspnea no chest pain, no palpitations and no calf pain + abdominal pain (labor pains in lower right quadrant); no nausea, no vomiting, no constipation and no diarrhea/loose stools + pelvic pain; no hematuria no depression, no hopelessness and no anxiety Physical Exam Physical Exam: Physical Exam per Dr. Alston Constitutional: WD/WN, vitals as above ENMT: Mouth: no dentition abnormality Mallampati Class: II Neck: normal visual inspection Respiratory: normal respiratory effort, lungs clear to auscultation normal respiratory effort Auscultation: lungs clear to auscultation bilaterally Cardiovascular: Rate/Rhythm: regular rate and regular rhythm Psychiatric: A+Ox3, euthymic affect Genitourinary: OB Exam Abdomen: + estimated weight (7.5#) Manual OB Exam: + cervical dilation 3 cm, + cervical effacement 50% and + station -2 OB Exam Monitor Tracing: + external FHT monitor used (135 mod variability ), + external uterine monitor used (irreg), + category I and + normal FHT variability Monitoring External Monitor Baseline 125-130 moderate variability no accelerations or decelerations Category 1 tracing Tocodynamometer regular contractions every 3 min. Pitocin at 13mU/min. Results & Data ([facility]) Vital Signs (Past 12 Hours) Vital Signs Temp Pulse Resp BP 07/15/20 11:19 76 129/94 07/15/20 10:08 72 122/82 07/15/20 08:53 83 130/80 07/15/20 07:46 36.5 C 20 07/15/20 07:45 36.5 C 85 20 125/86 Supervising Attestation Patient seen and evaluated with MS 2. Please see physician note.
--- NOTE | 2020-07-15 13:47 | Anesthesiology Consultation ---
Date of Service July 15, 2020 Assessment & Plan (1) Encounter for pre-operative examination: Chart Review Chart Review: Acceptable Risk for Labor Epidural Consults Requested none ASA ASA2 Proposed Anesthesia Anesthesia Type: Labor Epidural Risk / Benefits Reviewed With: PT / POA / Parent / Guardian, Accepts Plan and Informed Consent Obtained History Height/Weight Height: 5 ft 6 in Weight: 117.48 kg Allergies Allergy/AdvReac Type Severity Reaction Status Date / Time No Known Allergies Allergy Verified 07/15/20 09:39 Medications Home Medications Medication Instructions Recorded Confirmed Last Taken breast pump #1 ea 04/05/20 07/12/20 Unknown famotidine [Pepcid] 40 mg PO DAILY 07/15/20 07/15/20 07/14/20 08:00 ondansetron HCl [Zofran] 4 mg PO Q8H 07/15/20 07/15/20 07/14/20 08:00 prenat.vits,nigel,ovs-pooz-evknr 1 tab PO DAILY 07/15/20 07/15/20 07/14/20 08:00 [ Vitamin] Active Medications Generic Name Dose Route Start Last Admin Trade Name Freq PRN Reason Stop Dose Admin Oxytocin 30 units in 500 mls @ 13 mls/hr 07/15/20 08:18 07/15/20 12:27 Pitocin IV 07/17/20 08:17 0.78 units/hr .Q24H PRN 13 mls/hr Labor Induction/Augmentation Titration Protocol 0.78 UNITS/HR Lactated Ringer's 1,000 mls @ 125 mls/hr 07/15/20 08:18 07/15/20 13:35 Lr IV 07/17/20 08:17 999 mls/hr .Q8H PRN Administration L&D Protocol Protocol Past Medical History Medical History Atypical nevi Encounter for anatomic survey Epidermal cyst Folliculitis Hx of ectopic Hx of varicella Milia Need for rhogam due to Rh negative mother No pertinent past medical history Positive test Exercise / Class Metabolic Activity II 4-5 Yardwork/Stairs/Walk up hill Past Family History Family History Son Coarctation of abdominal aorta Grandmother Breast cancer Other Colorectal cancer Past Surgical History Surgical History H/O oral surgery H/O shoulder surgery Past Anesthesia History No Hx of Anesthesia Complications and No Family Hx of Anesthesia Complications History of PONV No Hx of PONV and No Hx of Motion Sickness Social History Smoking Status: Former smoker Hx Alcohol Use: No Hx Substance Use: No substance use type: does not use Physical Exam Vital Signs Last Vital Signs Temp 97.7 F 07/15/20 07:46 Pulse 76 07/15/20 13:34 Resp 20 07/15/20 07:46 BP 134/90 07/15/20 13:34 ENMT Mouth: no dentition abnormality Thyromental Distance: > or= 3.5 Finger Breadths Mallampati Class: II Neck normal visual inspection Respiratory normal respiratory effort Auscultation: lungs clear to auscultation bilaterally Cardiovascular Rate/Rhythm: regular rate and regular rhythm Testing Laboratory Results 07/15/20 08:32
[2020-07-15] MEDS ORDERED: ONDANSETRON INJ 2 MG/ML 2 ML VIAL IV PRN (14:11)
[2020-07-15] MEDS ORDERED: fentaNYL 2MCG/ML ROPIVACAINE 1.25MG/ML 100 ML BAG EPI PRN (14:11)
[2020-07-15] MEDS ORDERED: NALOXONE HCL 0.4 MG/1 ML VIAL/CARP IV PRN (14:11)
[2020-07-15] MEDS ORDERED: diphenhydrAMINE 50 MG/ML VIAL IV PRN (14:11)
[2020-07-15] MEDS ORDERED: NALOXONE HCL 1 MG in SODIUM CHLORIDE 0.9% 1000ML 1,000 ML IV PRN (14:11)
[2020-07-15] MEDS ORDERED: ePHEDrine sulfate 50 MG/ML AMP IV PRN (14:11)
--- NOTE | 2020-07-15 15:15 | Labor Progress Brief Note ---
Date of Service July 15, 2020 Subjective Adequate pain control with epidural. Assessment & Plan (1) Chronic hypertension affecting : Admission and Anticipated Discharge Date Admission Date: July 15, 2020 Continue pitocin, AROM with clear fluid, fetus category 1 tracing, anticipate vaginal delivery Physical Exam Constitutional: WD/WN, vitals as above Psychiatric: A+Ox3, euthymic affect Genitourinary: cervix - 4-5/75%/-2 heart tones baseline 130, moderate to marked variability, accels present, no decels toco - q2-4, pit at 13 Results & Data ([facility]) Vital Signs (Past 12 Hours) Vital Signs Temp Pulse Resp BP Pulse Ox 07/15/20 15:06 82 97 07/15/20 15:01 71 94 07/15/20 14:57 71 111/72 07/15/20 14:56 75 93 07/15/20 14:54 77 94 07/15/20 14:51 74 93 07/15/20 14:46 79 95 07/15/20 14:45 77 94 07/15/20 14:41 74 94 07/15/20 14:38 68 94 07/15/20 14:36 80 95 07/15/20 14:32 73 116/77 07/15/20 14:31 79 94 07/15/20 14:26 77 94 07/15/20 14:25 67 94 07/15/20 14:21 79 95 07/15/20 14:19 79 94 07/15/20 14:16 82 116/79 94 07/15/20 14:14 79 94 07/15/20 14:11 85 127/80 97 07/15/20 14:09 80 118/76 07/15/20 14:07 36.4 C L 88 20 121/85 07/15/20 14:06 88 96 07/15/20 14:05 83 124/83 07/15/20 14:03 85 130/87 07/15/20 14:01 105 H 95 07/15/20 13:59 94 H 94 07/15/20 13:56 86 96 07/15/20 13:51 86 96 07/15/20 13:47 100 H 92 07/15/20 13:46 96 H 96 07/15/20 13:34 76 134/90 02/22/21 11:19 76 129/94 07/15/20 10:08 72 122/82 07/15/20 08:53 83 130/80 07/15/20 07:46 36.5 C 20 07/15/20 07:45 36.5 C 85 20 125/86 Coding Level of Care Code None Diagnoses Chronic hypertension affecting O10.919
[2020-07-15] MEDS ORDERED: DIPHTHERIA/TETANUS/PERTUSSIS 0.5 ML SYR/VIAL IM ONE (16:45)
[2020-07-15] MEDS ORDERED: HYDROCORTISONE ACETATE 25 MG SUPP PR PRN (16:45)
[2020-07-15] MEDS ORDERED: SUPERCREAM 0.870% 15 GM JAR EXT PRN (16:45)
[2020-07-15] MEDS ORDERED: ACETAMINOPHEN 325 MG TAB PO PRN (16:45)
--- NOTE | 2020-07-15 16:45 | Delivery Summary ---
Vaginal Delivery Summary Date of Service July 15, 2020 Pre-operative Diagnosis: at 38 6/7 weeks chronic hypertension Post-operative Diagnosis: same Procedure: pitocin induction AROM epidural repair of right labial tear EBL: 400cc Anesthesia: epidural Procedure: The patient pushed for one contraction to deliver a viable male infant in FABRIZIO position. The nose and mouth were bulb suctioned on the perineum and reduced a nuchal cord and the rest of the infant was then delivered without difficulty. The baby was vigorous. The nose and mouth were again bulb suctioned and the infant was placed in the maternal abdomen for drying and attention. Cord was clamped and cut at 1 minute of life. Cord blood and segment obtained. Placenta delivered spontaneous, intact with a three vessel cord. Cervix/sulci/rectum and perineum were intact. A right labial laceration was repaired in the normal standard fashion. Hemostasis obtained with dilute pitocin and fundal massage. Apgars were 8 and 9. Mother and baby doing well at the end of the delivery. Vaginal Delivery Summary [facility] Vaginal Delivery Charge Delivery Type Details: [facility]
--- NOTE | 2020-07-15 18:21 | Anesthesia Procedure Note ---
Date of Service July 15, 2020 Anesthesia Post Epidural Note Vital Signs Vital Signs: Temp Pulse Resp BP Pulse Ox 97.5 F L 87 20 130/93 96 07/15/20 14:07 07/15/20 18:12 07/15/20 14:07 07/15/20 18:12 07/15/20 16:26 Notes Mental Status: alert / awake / arousable and participated in evaluation Nausea / Vomiting: adequately controlled Pain: adequately controlled Airway Patency, RR, SpO2: stable & adequate BP & HR: stable & adequate Hydration State: stable & adequate Neuraxial Anesthesia: was administered and sensory block is resolving Anesthetic Complications: no major complications apparent and Pt Satisfied with anesthetic care Epidural: Removed without complications and With tip intact
[2020-07-15] MEDS: IBUPROFEN 600 MG TAB PO PRN (19:20)
[2020-07-15] MEDS: BENZOCAINE 20% AER SPR 82.5 GM CAN EXT PRN (19:20)
[2020-07-15] MEDS: DOCUSATE SODIUM 100 MG CAP PO SCH (21:33)
[2020-07-16] MEDS: IBUPROFEN 600 MG TAB PO PRN ×4 (00:24→21:28)
[2020-07-16 06:10] LABS: Hematocrit (blood only) 33.3 % (37-47); Hemoglobin 11.1 g/dL (12.0-16.0)
[2020-07-16] MEDS: PRENATAL VITAMIN 1 TAB PO SCH (07:38)
[2020-07-16] MEDS: DOCUSATE SODIUM 100 MG CAP PO SCH ×2 (07:38→21:28)
--- NOTE | 2020-07-16 07:38 | Obstetrical Progress Note ---
Date of Service July 16, 2020 Assessment & Plan (1) Chronic hypertension affecting : (2) Vaginal delivery: Doing well. BPs are good, no s/s of pet. Plan routine pp care. Day #:: 1 Subjective Ambulation: ambulating normally Voiding: no voiding problems Passing Gas:: Yes Diet Tolerance:: regular diet Lochia:: Small Feeding Type:: breast feeding Doing well. Minimal pain Physical Exam Constitutional WD/WN, vitals as above Neck trachea midline, no thyromegaly Cardiovascular Extremities: + edema (tr); no calf tenderness Gastrointestinal (Abdomen) obese , soft, nt, ff likely at u but difficult to evaluate. Results & Data ([facility]) Vital Signs (Past 12 Hours) Vital Signs Temp Pulse Resp BP Pulse Ox 07/16/20 04:35 36.7 C 76 18 116/75 07/16/20 00:15 36.7 C 88 18 109/70 95 07/15/20 20:10 37.0 C 97 H 18 126/85 98
--- NOTE | 2020-07-16 07:39 | Medical Student Progress Note ---
Date of Service July 16, 2020 Assessment & Plan (1) Chronic hypertension affecting : Eboni, , is doing well on day 1 post with induction and AROM. BP is normal at 116/75 this morning. Continue to monitor pain, BP, and . Baby requires care from nursery for possible tongue tie and spitting up so Eboni will stay at least until tomorrow. F/u appointment scheduled on 07/22 to monitor signs of preeclampsia. Adding daily pepcid to med list as per home meds. Present on Admission?: Yes (2) Vaginal delivery: Doing well on day 1 post . Admission and Anticipated Discharge Date Admission Date: July 15, 2020 Subjective Eboni, , is doing well this morning on day 1 post- with induction and AROM. Her pain is at a 2/10, well controlled with tylenol. Has some lochia rubra. She is voiding and having bowel movements without issue. She is well, with slight issues with latching due to an inverted nipple on one breast and possible tongue tie on baby. She does not want a form of control currently and is not feeling down, depressed, or overwhelmed. She is ambulating well and would like to stay through the night. She requests a daily pepcid as per her home medication regimen. On ROS, she denies headache, chest pain, SOB, GI upset, or calf pain. She does have some intermittent 3/10 sharp cramping pain in her RLQ. Physical Exam Constitutional: WD/WN, vitals as above no acute distress Respiratory: normal respiratory effort, lungs clear to auscultation Cardiovascular: RRR, no murmur, no edema Gastrointestinal (Abdomen): Percussion/Palpation: abdomen nontender Genitourinary: uterus non-tender, difficult to palpate. Feels to be below umbilicus. Results & Data ([facility]) Vital Signs (Past 12 Hours) Vital Signs Temp Pulse Resp BP Pulse Ox 07/16/20 04:35 36.7 C 76 18 116/75 07/16/20 00:15 36.7 C 88 18 109/70 95 07/15/20 20:10 37.0 C 97 H 18 126/85 98 Laboratory Results Laboratory Results - last 24 hr 07/15/20 07/16/20 08:32 06:00 WBC 9.09 RBC 4.32 Hgb 12.1 11.1 L Hct 35.9 L 33.3 L MCV 83.1 MCH 28.0 MCHC 33.7 RDW Std Deviation 43.5 RDW Coeff of Manuel 14.3 Plt Count 262 MPV 11.8 H Supervising Attestation Patient seen and evaluated with MS2. Please see my note. Agree with above.
[2020-07-16] MEDS: FAMOTIDINE 40 MG TABLET PO SCH (08:14)
[2020-07-16] MEDS: BENZOCAINE 20% AER SPR 82.5 GM CAN EXT PRN (08:14)
[2020-07-17] MEDS: IBUPROFEN 600 MG TAB PO PRN ×2 (01:43→06:21)
--- NOTE | 2020-07-17 06:24 | Obstetrical Progress Note ---
Date of Service <Zander Tirado MD - Last Filed: 07/17/20 07:12> July 17, 2020 Assessment & Plan <Zander Tirado MD - Last Filed: 07/17/20 07:12> (1) state: 35 y/o s/p at 37w6d and is PPD2. A pos. Rubella immune. GBS neg. - meeting milestones - pain controlled. . ambulating, voiding, eating - continue routine care - dispo home today. instructions reviewed Subjective <Zander Tirado MD - Last Filed: 07/17/20 07:12> Ambulation: ambulating normally Voiding: no voiding problems Passing Gas:: Yes Diet Tolerance:: regular diet Lochia:: Small Feeding Type:: breast feeding (some latching issues. working w/ staff) Current Pain Level(1-10): 2 (2-3) No acute complaints. Review of Systems Denies fever, chills, sweats Denies shortness of breath, chest pain, palpitations. Denies breast pain. Denies dysuria. Denies headache or changes in vision. Denies nausea/vomiting. Denies numbness, tingling, weakness. no mood problems no calf pain Physical Exam <Zander Tirado MD - Last Filed: 07/17/20 07:12> General: Alert, oriented. No acute distress. Cardiac: Regular rate and rhythm, no murmurs/rubs/gallops. Respiratory: Clear to auscultation bilaterally, no wheezes/rales/rhonchi. No respiratory distress. Abdomen: , soft, nontender. Uterus: Uterine fundus firm, palpable 2cm below umbilicus. Lower Extremities: Trace LE edema. No deep calf pain. Coral's negative bilaterally. Results & Data ([facility]) <Zander Tirado MD - Last Filed: 07/17/20 07:12> Vital Signs (Past 12 Hours) Vital Signs Temp Pulse Resp BP Pulse Ox 07/16/20 23:15 36.6 C 77 18 124/86 07/16/20 19:45 36.6 C 87 20 123/78 96 Medications Administered <Alessia Giraldo MD, FACOG - Last Filed: 07/17/20 08:12> Co-Signing Physician Notes Resident Physician Supervision Note: I interviewed and examined the patient. Discussed with Dr. Tirado and agree with findings and plan as documented in the note. Any exceptions or clarifications are listed here: [None] Documented By: Alessia Giradlo MD, FACOG
[2020-07-17] MEDS: FAMOTIDINE 40 MG TABLET PO SCH (08:47)
[2020-07-17] MEDS: DOCUSATE SODIUM 100 MG CAP PO SCH (08:47)
[2020-07-17] MEDS: PRENATAL VITAMIN 1 TAB PO SCH (08:47)
== END 2020-07-17 13:42 | disposition home or self-care (01) | DRG 806 ==
LOC: 4S1 07:36 → 4S2 19:58